=== PATIENT | female | born 1940 | race Caucasian/White ===

== ENCOUNTER 2017-05-29 21:28 | Inpatient (IN) | payer OTHER ==
[~2017-05-29] VITALS: Ht 165.1 cm; Wt 91.5 kg
[~2017-05-29 21:28] MED LIST: ALEVE220 M2 PO; BACTRIM,SEPT1 TABLET PO; COUMADIN2.5 MG PO; FERROUS SULFAT325 MG PO; NORCO 5/3251 TABLET PO; PERCOCET 5/31 TABLET PO; SYSTANE BALANCE10 ML BOTH EYES; TRAMADOL HCL50 MG PO; VISTARIL25 MG PO; ZOFRAN4 MG PO
[2017-05-29 22:20] LABS: HEMATOCRIT 40.5 % (36.0-46.0); HEMOGLOBIN 13.5 G/DL (11.9-15.5); MCH 31.4 PG (29.0-34.0); MCHC 33.3 G/DL (30.0-36.0); MCV 94.2 FL (83-99); PLATELET COUNT 194 K/uL (156-360); RBC DIS.WIDTH-CV 13.1 % (11.8-14.6); RBC DIS.WIDTH-SD 44.9 % (39-53); WHITE BLOOD COUNT 10.8 K/uL (4.1-10.2)
[2017-05-29 22:30] LABS: ALBUMIN 4.2 g/dL (3.2-4.8); CHLORIDE 106 mEq/L (99-109); POTASSIUM 4.4 mEq/L (3.7-5.4); SODIUM 143 mEq/L (136-147)
[2017-05-29 22:32] LABS: GLUCOSE 146 mg/dL (70-99); TOTAL PROTEIN 7.4 g/dL (6.4-8.3)
[2017-05-29 22:34] LABS: TOTAL BILIRUBIN 0.6 mg/dL (0.0-1.0)
[2017-05-29 22:36] LABS: ALKALINE PHOSPHATASE 95 IU/L (3-129); CREATININE 0.9 mg/dL (0.6-1.3); GFR ESTIMATE (CALCULATED) > 59 mL/min/
[2017-05-29 22:37] LABS: UREA NITROGEN (BUN) 19 mg/dL (9-23)
[2017-05-29 22:38] LABS: AST (GOT) 27 IU/L (2-34)
[2017-05-29 22:39] LABS: ALT (GPT) 19 IU/L (3-49)
[2017-05-29 22:43] LABS: TROP-I INTERPRETATION NEGATIVE; TROPONIN-I < 0.01 ng/mL (0.0-0.30)
[2017-05-29 23:49] LABS: LIPASE 4489 U/L (1.0-51.0)
[2017-05-30] MEDS ORDERED: RESTASIS MULTI5.5 ML BOTH EYES (00:48)
[2017-05-30 00:51] LABS: PTT 25.4 SEC (25-37)
[2017-05-30 03:01] LABS: APPEARANCE CLEAR ((CLEAR)); BILIRUBIN NEGATIVE; BLOOD NEGATIVE; COLOR YELLOW ((YELLOW)); GLUCOSE (STRIP) NEGATIVE; KETONES NEGATIVE; LEUKOCYTES MODERATE; NITRITE NEGATIVE; PROTEIN (STRIP) NEGATIVE; SPECIFIC GRAVITY 1.023 (1.000-1.030); UROBILINOGEN 0.2 MG/DL (0.2-1.0)
[2017-05-30 03:07] LABS: BACTERIA RARE /HPF; EPITHELIAL CELLS RARE /HPF; MUCUS NONE SEEN /LPF; RED BLOOD CELLS 0-5 /HPF (0-5); UCUL ADDED? YES; WHITE BLOOD CELLS 20-30 /HPF (0-5)
[2017-05-30 03:56] VITALS: BP 140/67
[2017-05-30 06:04] LABS: BASOPHIL (%) 0.1 % (0-1); EOSINOPHIL (%) 0 % (0-5); HEMATOCRIT 39.3 % (36.0-46.0); HEMOGLOBIN 12.6 G/DL (11.9-15.5); IMMATURE GRANULOCYTE (%) 0.2 % (0.0-0.7); LYMPHOCYTE (%) 5.7 % (15-42); LYMPHOCYTE COUNT 0.5 K/uL (1.0-2.8); MCH 30.3 PG (29.0-34.0); MCHC 32.1 G/DL (30.0-36.0); MCV 94.5 FL (83-99); MONOCYTE (%) 6.7 % (3-12); MONOCYTE COUNT 0.6 K/uL (0-0.8); NEUTROPHIL (%) 87.3 % (45-76); NEUTROPHIL COUNT 8.1 K/uL (1.8-6.4); PLATELET COUNT 182 K/uL (156-360); RBC DIS.WIDTH-CV 13.1 % (11.8-14.6); RBC DIS.WIDTH-SD 44.9 % (39-53); RED BLOOD COUNT 4.16 M/uL (3.80-5.20); WHITE BLOOD COUNT 9.3 K/uL (4.1-10.2)
[2017-05-30 06:21] LABS: ALBUMIN 3.6 G/DL (3.2-4.8); CHLORIDE 109 MEQ/L (99-109); POTASSIUM 4.1 MEQ/L (3.7-5.4); SODIUM 141 MEQ/L (136-147); TOTAL BILIRUBIN 0.6 MG/DL (0.0-1.0)
[2017-05-30 06:38] LABS: ALKALINE PHOSPHATASE 72 IU/L (3-129); ALT (GPT) 14 IU/L (3-49); AST (GOT) 18 IU/L (2-34); CREATININE 0.8 MG/DL (0.6-1.3); GFR ESTIMATE (CALCULATED) > 59 mL/min/; GLUCOSE 150 mg/dL (70-99); LIPASE 5793 U/L (1.0-51.0); TOTAL PROTEIN 5.6 G/DL (6.4-8.3); UREA NITROGEN (BUN) 18 mg/dL (9-23)
[2017-05-30 07:19] VITALS: BP 128/61
[2017-05-30 10:58] VITALS: BP 146/68
[2017-05-30 13:44] LABS: TRIGLYCERIDES 78 MG/DL (Normal: <150)
[2017-05-30 16:21] VITALS: BP 140/63
[2017-05-30 20:00] VITALS: BP 132/62
[2017-05-31] VITALS: BP 127/63
[2017-05-31 03:49] VITALS: BP 136/67
[2017-05-31 06:55] LABS: BASOPHIL (%) 0.1 % (0-1); EOSINOPHIL (%) 0 % (0-5); HEMATOCRIT 37.9 % (36.0-46.0); HEMOGLOBIN 12.3 G/DL (11.9-15.5); IMMATURE GRANULOCYTE (%) 0.5 % (0.0-0.7); LYMPHOCYTE (%) 6.4 % (15-42); LYMPHOCYTE COUNT 0.7 K/uL (1.0-2.8); MCH 31.2 PG (29.0-34.0); MCHC 32.5 G/DL (30.0-36.0); MCV 96.2 FL (83-99); MONOCYTE (%) 6.4 % (3-12); MONOCYTE COUNT 0.7 K/uL (0-0.8); NEUTROPHIL (%) 86.6 % (45-76); NEUTROPHIL COUNT 9.3 K/uL (1.8-6.4); PLATELET COUNT 152 K/uL (156-360); RBC DIS.WIDTH-CV 13.5 % (11.8-14.6); RBC DIS.WIDTH-SD 47.6 % (39-53); RED BLOOD COUNT 3.94 M/uL (3.80-5.20); WHITE BLOOD COUNT 10.8 K/uL (4.1-10.2)
[2017-05-31 07:07] VITALS: BP 156/70
[2017-05-31 08:26] LABS: ALBUMIN 3.1 G/DL (3.2-4.8); ALKALINE PHOSPHATASE 61 IU/L (3-129); ALT (GPT) 10 IU/L (3-49); AST (GOT) 15 IU/L (2-34); CHLORIDE 107 MEQ/L (99-109); CREATININE 0.7 MG/DL (0.6-1.3); GFR ESTIMATE (CALCULATED) > 59 mL/min/; GLUCOSE 113 mg/dL (70-99); LIPASE 972 U/L (1.0-51.0); POTASSIUM 3.9 MEQ/L (3.7-5.4); SODIUM 141 MEQ/L (136-147); UREA NITROGEN (BUN) 16 mg/dL (9-23)
[2017-05-31 08:27] LABS: TOTAL BILIRUBIN 1.1 MG/DL (0.0-1.0)
[2017-05-31 11:32] VITALS: BP 138/68
[2017-05-31 15:00] VITALS: BP 154/66
[2017-05-31 23:42] VITALS: BP 148/62
[2017-06-01 06:08] LABS: BASOPHIL (%) 0.2 % (0-1); EOSINOPHIL (%) 0.1 % (0-5); HEMATOCRIT 36.3 % (36.0-46.0); HEMOGLOBIN 11.6 G/DL (11.9-15.5); IMMATURE GRANULOCYTE (%) 0.6 % (0.0-0.7); LYMPHOCYTE (%) 6.3 % (15-42); LYMPHOCYTE COUNT 0.8 K/uL (1.0-2.8); MCH 31.1 PG (29.0-34.0); MCV 97.3 FL (83-99); MONOCYTE (%) 8.7 % (3-12); NEUTROPHIL (%) 84.1 % (45-76); NEUTROPHIL COUNT 10.1 K/uL (1.8-6.4); PLATELET COUNT 148 K/uL (156-360); RBC DIS.WIDTH-CV 13.4 % (11.8-14.6); RED BLOOD COUNT 3.73 M/uL (3.80-5.20)
[2017-06-01 06:44] LABS: CHLORIDE 105 MEQ/L (99-109); CREATININE 0.6 MG/DL (0.6-1.3); GFR ESTIMATE (CALCULATED) > 59 mL/min/; GLUCOSE 155 mg/dL (70-99); LIPASE 231 U/L (1.0-51.0); POTASSIUM 3.7 MEQ/L (3.7-5.4); SODIUM 138 MEQ/L (136-147); UREA NITROGEN (BUN) 11 mg/dL (9-23)
[2017-06-01 07:56] VITALS: BP 170/79
[2017-06-01 15:52] VITALS: BP 153/75
[2017-06-01 23:42] VITALS: BP 132/75
[2017-06-02 05:57] LABS: HEMOGLOBIN 11.5 G/DL (11.9-15.5); MCH 30.8 PG (29.0-34.0); MCHC 31.9 G/DL (30.0-36.0); MCV 96.5 FL (83-99); PLATELET COUNT 147 K/uL (156-360); RBC DIS.WIDTH-CV 13.2 % (11.8-14.6); RBC DIS.WIDTH-SD 46.9 % (39-53); RED BLOOD COUNT 3.73 M/uL (3.80-5.20)
[2017-06-02 06:29] LABS: ALBUMIN 2.7 G/DL (3.2-4.8); ALKALINE PHOSPHATASE 65 IU/L (3-129); ALT (GPT) 7 IU/L (3-49); AST (GOT) 11 IU/L (2-34); CHLORIDE 102 MEQ/L (99-109); CREATININE 0.6 MG/DL (0.6-1.3); GFR ESTIMATE (CALCULATED) > 59 mL/min/; GLUCOSE 120 mg/dL (70-99); LIPASE 120 U/L (1.0-51.0); POTASSIUM 3.7 MEQ/L (3.7-5.4); SODIUM 139 MEQ/L (136-147); TOTAL BILIRUBIN 0.9 MG/DL (0.0-1.0); TOTAL PROTEIN 4.9 G/DL (6.4-8.3); UREA NITROGEN (BUN) 6 mg/dL (9-23)
[2017-06-02 07:45] VITALS: BP 148/72
[2017-06-02 16:07] VITALS: BP 155/73
[2017-06-02 23:33] VITALS: BP 135/63
[2017-06-03 06:09] LABS: BASOPHIL (%) 0.2 % (0-1); EOSINOPHIL (%) 0.9 % (0-5); EOSINOPHIL COUNT 0.1 K/uL (0-0.3); HEMATOCRIT 30.9 % (36.0-46.0); HEMOGLOBIN 9.9 G/DL (11.9-15.5); IMMATURE GRANULOCYTE (%) 0.4 % (0.0-0.7); LYMPHOCYTE (%) 9.8 % (15-42); MCH 30.9 PG (29.0-34.0); MCV 96.6 FL (83-99); MONOCYTE (%) 11.2 % (3-12); MONOCYTE COUNT 1.1 K/uL (0-0.8); NEUTROPHIL (%) 77.5 % (45-76); NEUTROPHIL COUNT 7.7 K/uL (1.8-6.4); PLATELET COUNT 153 K/uL (156-360); RBC DIS.WIDTH-CV 13.2 % (11.8-14.6); RBC DIS.WIDTH-SD 46.9 % (39-53)
[2017-06-03 06:34] LABS: ALBUMIN 2.4 G/DL (3.2-4.8); ALKALINE PHOSPHATASE 62 IU/L (3-129); ALT (GPT) 7 IU/L (3-49); AST (GOT) 11 IU/L (2-34); CHLORIDE 102 MEQ/L (99-109); CREATININE 0.6 MG/DL (0.6-1.3); DIRECT BILIRUBIN 0.4 mg/dL (0.0-0.3); GFR ESTIMATE (CALCULATED) > 59 mL/min/; GLUCOSE 118 mg/dL (70-99); LIPASE 78 U/L (1.0-51.0); POTASSIUM 3.2 MEQ/L (3.7-5.4); SODIUM 139 MEQ/L (136-147); TOTAL BILIRUBIN 0.9 MG/DL (0.0-1.0); TOTAL PROTEIN 4.4 G/DL (6.4-8.3); UREA NITROGEN (BUN) 5 mg/dL (9-23)
[2017-06-03 07:34] VITALS: BP 142/69
[2017-06-03 08:43] LABS: MAGNESIUM 1.6 mg/dl (1.3-2.7)
[2017-06-03 12:07] VITALS: BP 131/69
[2017-06-03 16:04] LABS: BASE EXCESS 3.9 mEq/L (-3 to +3); BICARBONATE 29.2 mEq/L (22-26); CARBOXY HGB 0.7 % (0-5); COMMENTS - BLOOD GASES A+C+; DEVICE NC; METHEMOGLOBIN 0.8 % (0-1.5); O2 FLOW 3 L/MIN; PCO2 46 mm Hg (35-45); PO2 76 mm Hg (80-100); SITE RR; TOTAL RESP RATE 18 resp/min; pH 7.41 (7.35-7.45)
[2017-06-03 16:15] VITALS: BP 149/73
[2017-06-03 19:42] VITALS: BP 125/60
[2017-06-04] VITALS (8 sets, daily range): BP systolic 137–156; BP diastolic 65–75
[2017-06-04 05:26] LABS: BASOPHIL (%) 0.2 % (0-1); EOSINOPHIL (%) 0 % (0-5); HEMOGLOBIN 10.1 G/DL (11.9-15.5); IMMATURE GRANULOCYTE (%) 0.4 % (0.0-0.7); LYMPHOCYTE (%) 5.5 % (15-42); LYMPHOCYTE COUNT 0.3 K/uL (1.0-2.8); MCHC 32.6 G/DL (30.0-36.0); MCV 95.1 FL (83-99); MONOCYTE (%) 2.1 % (3-12); MONOCYTE COUNT 0.1 K/uL (0-0.8); NEUTROPHIL (%) 91.8 % (45-76); NEUTROPHIL COUNT 5.2 K/uL (1.8-6.4); PLATELET COUNT 169 K/uL (156-360); RBC DIS.WIDTH-CV 13.4 % (11.8-14.6); RED BLOOD COUNT 3.26 M/uL (3.80-5.20); WHITE BLOOD COUNT 5.6 K/uL (4.1-10.2)
[2017-06-04 05:48] LABS: CHLORIDE 104 MEQ/L (99-109); CREATININE 0.6 MG/DL (0.6-1.3); GFR ESTIMATE (CALCULATED) > 59 mL/min/; GLUCOSE 159 mg/dL (70-99); LIPASE 50 U/L (1.0-51.0); POTASSIUM 3.7 MEQ/L (3.7-5.4); SODIUM 141 MEQ/L (136-147); UREA NITROGEN (BUN) 10 mg/dL (9-23)
[2017-06-04 05:49] LABS: ALBUMIN 2.6 G/DL (3.2-4.8); CHLORIDE 105 MEQ/L (99-109); CREATININE 0.6 MG/DL (0.6-1.3); GFR ESTIMATE (CALCULATED) > 59 mL/min/; GLUCOSE 158 mg/dL (70-99); MAGNESIUM 1.9 mg/dl (1.3-2.7); POTASSIUM 3.7 MEQ/L (3.7-5.4); SODIUM 142 MEQ/L (136-147); TOTAL PROTEIN 4.7 G/DL (6.4-8.3); UREA NITROGEN (BUN) 11 mg/dL (9-23)
[2017-06-04 05:50] LABS: ALKALINE PHOSPHATASE 154 IU/L (3-129); ALT (GPT) 33 IU/L (3-49); AST (GOT) 60 IU/L (2-34); TOTAL BILIRUBIN 3.1 MG/DL (0.0-1.0)
[2017-06-05 03:48] VITALS: BP 133/76
[2017-06-05 05:25] LABS: BASOPHIL (%) 0.1 % (0-1); EOSINOPHIL (%) 0 % (0-5); HEMATOCRIT 29.8 % (36.0-46.0); HEMOGLOBIN 9.9 G/DL (11.9-15.5); IMMATURE GRANULOCYTE (%) 0.8 % (0.0-0.7); LYMPHOCYTE (%) 8.6 % (15-42); LYMPHOCYTE COUNT 0.6 K/uL (1.0-2.8); MCH 31.4 PG (29.0-34.0); MCHC 33.2 G/DL (30.0-36.0); MCV 94.6 FL (83-99); MONOCYTE COUNT 0.5 K/uL (0-0.8); NEUTROPHIL (%) 83.5 % (45-76); PLATELET COUNT 202 K/uL (156-360); RBC DIS.WIDTH-SD 48.4 % (39-53); RED BLOOD COUNT 3.15 M/uL (3.80-5.20); WHITE BLOOD COUNT 7.2 K/uL (4.1-10.2)
[2017-06-05 05:59] LABS: ALBUMIN 2.5 G/DL (3.2-4.8); CHLORIDE 104 MEQ/L (99-109); CREATININE 0.7 MG/DL (0.6-1.3); GFR ESTIMATE (CALCULATED) > 59 mL/min/; GLUCOSE 122 mg/dL (70-99); POTASSIUM 3.6 MEQ/L (3.7-5.4); SODIUM 140 MEQ/L (136-147); TOTAL BILIRUBIN 2.5 MG/DL (0.0-1.0); TOTAL PROTEIN 4.7 G/DL (6.4-8.3); UREA NITROGEN (BUN) 14 mg/dL (9-23)
[2017-06-05 06:04] LABS: ALKALINE PHOSPHATASE 228 IU/L (3-129); ALT (GPT) 243 IU/L (3-49); AST (GOT) 331 IU/L (2-34)
[2017-06-05 08:25] VITALS: BP 159/70
[2017-06-05 09:34] LABS: LIPASE 85 U/L (1.0-51.0)
[2017-06-05 09:35] LABS: DIRECT BILIRUBIN 1.8 mg/dL (0.0-0.3)
[2017-06-05 15:00] VITALS: BP 174/75
[2017-06-05 19:37] VITALS: BP 143/67
[2017-06-06 00:20] VITALS: BP 145/71
[2017-06-06 03:09] VITALS: BP 152/71
[2017-06-06 05:22] LABS: BASOPHIL (%) 0.2 % (0-1); EOSINOPHIL (%) 0 % (0-5); HEMATOCRIT 32.8 % (36.0-46.0); HEMOGLOBIN 10.6 G/DL (11.9-15.5); IMMATURE GRANULOCYTE (%) 2.2 % (0.0-0.7); LYMPHOCYTE COUNT 1.8 K/uL (1.0-2.8); MCH 30.2 PG (29.0-34.0); MCHC 32.3 G/DL (30.0-36.0); MCV 93.4 FL (83-99); MONOCYTE (%) 12.5 % (3-12); MONOCYTE COUNT 1.1 K/uL (0-0.8); NEUTROPHIL (%) 64.1 % (45-76); NEUTROPHIL COUNT 5.6 K/uL (1.8-6.4); PLATELET COUNT 239 K/uL (156-360); RBC DIS.WIDTH-SD 47.4 % (39-53); RED BLOOD COUNT 3.51 M/uL (3.80-5.20); WHITE BLOOD COUNT 8.8 K/uL (4.1-10.2)
[2017-06-06 05:59] LABS: ALBUMIN 2.6 G/DL (3.2-4.8); ALKALINE PHOSPHATASE 198 IU/L (3-129); ALT (GPT) 253 IU/L (3-49); CHLORIDE 105 MEQ/L (99-109); CREATININE 0.9 MG/DL (0.6-1.3); GFR ESTIMATE (CALCULATED) > 59 mL/min/; GLUCOSE 96 mg/dL (70-99); POTASSIUM 3.6 MEQ/L (3.7-5.4); SODIUM 145 MEQ/L (136-147); TOTAL PROTEIN 4.5 G/DL (6.4-8.3); UREA NITROGEN (BUN) 16 mg/dL (9-23)
[2017-06-06 06:00] LABS: AST (GOT) 180 IU/L (2-34); DIRECT BILIRUBIN 0.7 mg/dL (0.0-0.3); TOTAL BILIRUBIN 1.3 MG/DL (0.0-1.0)
[2017-06-06 09:53] VITALS: BP 143/73
[2017-06-06 10:23] LABS: IRON 71 MCG/DL (35-150); TRANSFERRIN (TIBC) 159.6 mg/dL (215-380); TRANSFERRIN SATUR. 44 % (20-55)
[2017-06-06 10:30] LABS: FERRITIN 238 NG/ML (10-291)
[2017-06-06 10:36] LABS: IMM.RETIC FRACTION 18.6 % (3-19); RETICULOCYTE COUNT 2.7 % (0.5-1.8)
[2017-06-06 11:28] LABS: FOLIC ACID (FOLATE) 20.8 NG/ML (5.0-22.0)
[2017-06-06 12:01] VITALS: BP 175/72
[2017-06-06 15:34] VITALS: BP 143/64
[2017-06-06 19:20] VITALS: BP 145/72
[2017-06-07] VITALS (7 sets, daily range): BP systolic 129–164; BP diastolic 60–98
[2017-06-07 05:19] LABS: HEMOGLOBIN 11.5 G/DL (11.9-15.5); MCH 30.6 PG (29.0-34.0); MCHC 32.9 G/DL (30.0-36.0); MCV 93.1 FL (83-99); NRBC (%) 0.2 /100 WBC (0-0); PLATELET COUNT 269 K/uL (156-360); RBC DIS.WIDTH-CV 14.2 % (11.8-14.6); RBC DIS.WIDTH-SD 47.8 % (39-53); RED BLOOD COUNT 3.76 M/uL (3.80-5.20); WHITE BLOOD COUNT 9.7 K/uL (4.1-10.2)
[2017-06-07 05:59] LABS: ALBUMIN 2.8 G/DL (3.2-4.8); ALKALINE PHOSPHATASE 170 IU/L (3-129); ALT (GPT) 170 IU/L (3-49); AST (GOT) 50 IU/L (2-34); CHLORIDE 104 MEQ/L (99-109); CREATININE 0.7 MG/DL (0.6-1.3); GFR ESTIMATE (CALCULATED) > 59 mL/min/; GLUCOSE 111 mg/dL (70-99); LIPASE 285 U/L (1.0-51.0); POTASSIUM 3.9 MEQ/L (3.7-5.4); SODIUM 142 MEQ/L (136-147); TOTAL BILIRUBIN 1.1 MG/DL (0.0-1.0); TOTAL PROTEIN 4.8 G/DL (6.4-8.3); UREA NITROGEN (BUN) 10 mg/dL (9-23)
[2017-06-07 20:29] LABS: C DIFF TOXIN NEGATIVE (NEGATIVE)
[2017-06-08 03:29] VITALS: BP 159/72
[2017-06-08 06:04] LABS: BASOPHIL (%) 0.2 % (0-1); EOSINOPHIL (%) 0.6 % (0-5); EOSINOPHIL COUNT 0.1 K/uL (0-0.3); HEMATOCRIT 32.2 % (36.0-46.0); HEMOGLOBIN 10.6 G/DL (11.9-15.5); IMMATURE GRANULOCYTE (%) 2.4 % (0.0-0.7); LYMPHOCYTE COUNT 2.4 K/uL (1.0-2.8); MCH 30.8 PG (29.0-34.0); MCHC 32.9 G/DL (30.0-36.0); MCV 93.6 FL (83-99); MONOCYTE COUNT 0.6 K/uL (0-0.8); NEUTROPHIL (%) 66.8 % (45-76); NEUTROPHIL COUNT 6.7 K/uL (1.8-6.4); PLATELET COUNT 269 K/uL (156-360); RBC DIS.WIDTH-CV 14.3 % (11.8-14.6); RBC DIS.WIDTH-SD 47.8 % (39-53); RED BLOOD COUNT 3.44 M/uL (3.80-5.20)
[2017-06-08 06:36] LABS: ALBUMIN 2.5 G/DL (3.2-4.8); ALT (GPT) 94 IU/L (3-49); CHLORIDE 108 MEQ/L (99-109); CREATININE 0.6 MG/DL (0.6-1.3); GFR ESTIMATE (CALCULATED) > 59 mL/min/; GLUCOSE 103 mg/dL (70-99); POTASSIUM 3.3 MEQ/L (3.7-5.4); SODIUM 142 MEQ/L (136-147); TOTAL PROTEIN 4.6 G/DL (6.4-8.3); UREA NITROGEN (BUN) 7 mg/dL (9-23)
[2017-06-08 06:44] LABS: ALKALINE PHOSPHATASE 120 IU/L (3-129); AST (GOT) 19 IU/L (2-34); TOTAL BILIRUBIN 0.8 MG/DL (0.0-1.0)
[2017-06-08 08:34] VITALS: BP 151/81
[2017-06-08 09:34] LABS: ALBUMIN 2.5 G/DL (3.2-4.8); ALT (GPT) 98 IU/L (3-49); DIRECT BILIRUBIN 0.3 mg/dL (0.0-0.3); LIPASE 265 U/L (1.0-51.0); TOTAL PROTEIN 4.2 G/DL (6.4-8.3)
[2017-06-08 09:43] LABS: ALKALINE PHOSPHATASE 124 IU/L (3-129); AST (GOT) 20 IU/L (2-34); TOTAL BILIRUBIN 0.8 MG/DL (0.0-1.0)
[2017-06-08 10:47] VITALS: BP 136/79
[2017-06-08] MEDS ORDERED: PREDNISONE10 MG PO (14:04)
[2017-06-08] MEDS ORDERED: ACIDOPHILUS LA1 EACH PO (14:05)
[2017-06-08] MEDS ORDERED: OXYCODONE HCL5 MG PO (14:05)
[2017-06-08] MEDS ORDERED: METOPROLOL TART25 MG PO (14:16)
== END 2017-06-08 15:09 | disposition home or self-care (01) | DRG 417 ==
LOC: EME 21:28 → 5SOUTH 05-30 02:08 → EDOF 05-30 02:08 → 4EAST 05-30 02:08 → ENRESERV 05-30 02:10 → 5SOUTH 05-30 03:03 → ENRESERV 06-03 15:34 → 4EAST 06-03 16:21
PROVIDERS: Emergency Medicine; Hospitalist; Internal Medicine Gastroenterology; Physician Assistant; Physician Assistant Surgical; Specialist; Student in an Organized Health Care Education/Training Program; Surgery
DX: K81.2 Acute cholecystitis with chronic cholecystitis (principal); K85.10 Biliary acute pancreatitis without necrosis or infection; K65.3 Choleperitonitis; J95.821 Acute postprocedural respiratory failure; J69.0 Pneumonitis due to inhalation of food and vomit; J90 Pleural effusion, not elsewhere classified; K56.7 Ileus, unspecified; I27.20 Pulmonary hypertension, unspecified; N39.0 Urinary tract infection, site not specified; B96.20 Unspecified Escherichia coli [E. coli] as the cause of diseases classified elsewhere; K71.9 Toxic liver disease, unspecified; T36.0X5A Adverse effect of penicillins, initial encounter; J98.11 Atelectasis; J98.01 Acute bronchospasm; D64.9 Anemia, unspecified; N20.0 Calculus of kidney; M19.90 Unspecified osteoarthritis, unspecified site; E66.3 Overweight; Z68.31 Body mass index [BMI] 31.0-31.9, adult; Z90.710 Acquired absence of both cervix and uterus
CPT/HCPCS: 36600; 71045; 71046; 74177; 74181; 74183; 76705; 80048; 80053; 80076; 81003; 82248; 82607; 82728; 82746; 82803; 82948; 83540; 83690; 83735; 83880; 84466; 84478; 84484; 85025; 85027; 85046; 85610; 85730; 87040; 87070; 87075; 87077; 87086; 87186; 87205; 87493; 88304; 93005; 93306; 94010; 94640; 94640 76; 94667; 94668; 94760; 94799; 99202; 99281; 99285; J1100; J1170; J1644; J1940; J1956; J2250; J2270; J2405; J2543; J2710; J2765; J2930; J3010; J3475; J3480; J7030; J7040; J7050; J7120; J7512; S0020; S0028